=== PATIENT | female | born 1995 | race Caucasian/White ===

== ENCOUNTER 2025-01-14 23:35 | Inpatient (IN) | payer BC, OTHER ==
[~2025-01-14] VITALS: Ht 154.9 cm; Wt 66.7 kg
[2025-01-15 00:34] LABS: APPEARANCE,URINE CLEAR (CLEAR); BILIRUBIN,URINE 1+ (NEGATIVE); BLOOD, URINE 3+ Ery/uL (NEGATIVE); COLOR,URINE YELLOW (YELLOW); KETONES,URINE 3+ mg/dL (NEGATIVE); LEUKOCYTE ESTERASE ,URINE NEGATIVE (NEGATIVE); NITRITE, URINE NEGATIVE (NEGATIVE); PROTEIN,URINE 1+ mg/dl (NEGATIVE); UGLUCOSE NEGATIVE (NEGATIVE); UROBILINOGEN,URINE 0.2 EU/dL (0.2)
[2025-01-15 00:36] LABS: PREGNANCY TEST URINE QUAL NEGATIVE (NEGATIVE)
[2025-01-15 00:37] LABS: BASOPHILS % (AUTO) 0.5 % (0.0-2.0); HEMATOCRIT 46 % (33-45); HEMOGLOBIN 16.3 g/dL (11.5-14.8); LYMPHOCYTES % (AUTO) 10.9 % (20.0-44.0); MEAN CORPUSCULAR HEMOGLOBIN 31 PG (26.0-33.0); MEAN CORPUSCULAR HGB CONC 36 g/dl (31.0-36.0); MEAN CORPUSCULAR VOLUME 87 fL (82-100); MONOCYTES # (AUTO) 0.2 K/uL (0.1-1.30); MONOCYTES % (AUTO) 2.3 % (2.0-12.0); NEUTROPHILS # (AUTO) 7.8 K/uL (1.8-8.9); NEUTROPHILS % (AUTO) 86.3 % (43.0-81.0); PLATELET COUNT (AUTO) 396 K/uL (150-450); RED CELL DISTRIBUTION WIDTH 12.6 % (11.5-15.0)
[2025-01-15 00:48] LABS: CALCIUM, SERUM 9.6 mg/dL (8.5-10.1); POTASSIUM 3.8 mmol/L (3.5-5.1)
[2025-01-15 00:49] LABS: ADD URINE CULTURE YES; BACTERIA,URINE 2+ /HPF (None Seen); MUCUS,URINE Moderate /LPF (None Seen); RBC,URINE 21-50 /HPF (0-2)
[2025-01-15 00:54] LABS: ALBUMIN 5.2 g/dL (3.4-5.0); BILIRUBIN,TOTAL 2.3 mg/dL (0.2-1.0); TOTAL PROTEIN, SERUM 9.3 g/dL (6.4-8.2)
[2025-01-15] MEDS ORDERED: ONDANSETRON HCL/PF 4 MG/2 ML VIAL ONE ×3 (01:02→09:42)
[2025-01-15] MEDS ORDERED: MORPHINE SULFATE INJ 2 MG/ML DISP.SYRIN ONE ×3 (01:02→07:16)
[2025-01-15] MEDS ORDERED: PANTOPRAZOLE 40 MG VIAL ONE (01:02)
[2025-01-15] MEDS: IV NS 0.9% 1,000 ML IV ONE (01:08)
[2025-01-15] MEDS: PANTOPRAZOLE 40 MG VIAL IV ONE (01:09)
[2025-01-15] MEDS: ONDANSETRON HCL/PF - ER 4 MG/2 ML VIAL IV ONE ×2 (01:09→03:17)
[2025-01-15] MEDS: MORPHINE SULFATE INJ 2 MG/ML DISP.SYRIN IV ONE ×3 (01:09→07:21)
[2025-01-15 01:20] LABS: AMPHETAMINE, URINE NEGATIVE (NEGATIVE); BARBITURATE, URINE NEGATIVE (NEGATIVE); BENZODIAZEPINE, URINE NEGATIVE (NEGATIVE); COCCAINE, URINE NEGATIVE (NEGATIVE); OPIATE, URINE NEGATIVE (NEGATIVE); PHENCYCLIDINE SCREEN,URINE NEGATIVE (NEGATIVE)
[2025-01-15 01:33] LABS: CANNABINOID, URINE POSITIVE (NEGATIVE)
[2025-01-15] MEDS ORDERED: PIPERACI/TAZO 3.375GM/D5W 50ML PB IV ONE (03:34)
[2025-01-15] MEDS: PIPERACILLIN /TAZOBACTAM 3.375 G in IV D5W 50 ML IV ONE (03:39)
[2025-01-15] MEDS ORDERED: DIATR MEGLU/DIATRIZOATE SODIUM 120 ML BOTTLE (GASTROGRAPHIN) ONE (03:48)
[2025-01-15] MEDS ORDERED: METOCLOPRAMIDE HCL 10 MG/2 ML VIAL ONE (04:25)
[2025-01-15] MEDS: METOCLOPRAMIDE HCL 10 MG/2 ML VIAL IV ONE (04:30)
[2025-01-15 06:45] LABS: CALCIUM, SERUM 9.4 mg/dL (8.5-10.1); CREATININE 0.8 mg/dL (0.6-1.3); POTASSIUM 4.3 mmol/L (3.5-5.1)
[2025-01-15 07:17] LABS: ABG BASE EXCESS -14.4 mmol/L (-2.0-3.0); ABG OXYGEN SATURATION 97.6 % (94.0-98.0); ABG PCO2 20.3 mmHg (32.0-45.0); ABG PH 7.292 (7.350-7.450); ABG PO2 102.7 mmHg (83.0-108.0); ABG TOTAL HEMOGLOBIN 15.6 G/dL (12.0-16.0); COHb 0.3 % (0.5-1.5); MetHb 0.5 % (0.0-1.5); O2Hb 96.8 % (94.0-97.0); SITE, ABG LEFT BRACHIAL
[2025-01-15] MEDS: IV NS 0.9% 1,000 ML BAG IV ONE (09:38)
[2025-01-15] MEDS ORDERED: HYDROMORPHONE 1 MG/1 ML DISP.SYRIN ONE (09:42)
[2025-01-15] MEDS: ONDANSETRON HCL/PF 4 MG/2 ML VIAL IV ONE (09:49)
[2025-01-15] MEDS: HYDROMORPHONE 1 MG/1 ML DISP.SYRIN IV ONE (09:53)
[2025-01-15] MEDS ORDERED: ACETAMINOPHEN 325 MG TABLET PO PRN (10:00)
[2025-01-15] MEDS ORDERED: ZOLPIDEM TARTRATE 5 MG TABLET PO PRN (10:00)
[2025-01-15] MEDS ORDERED: Z GUARD REMEDY 4 OZ OINT TP PRN (10:00)
[2025-01-15] MEDS ORDERED: MAGNESIUM HYDROXIDE 30 ML UDC PO PRN (10:00)
[2025-01-15] MEDS ORDERED: ZEPBOUND SQ (10:48)
[2025-01-15] MEDS ORDERED: ONDA4TAB11 PO (10:48)
[2025-01-15] MEDS ORDERED: ALBU18HF2 IH (10:48)
[2025-01-15] MEDS ORDERED: NAPR-1009 PO (10:48)
[2025-01-15] MEDS: IV D5/0.45 NACL 1,000 ML IV PRN (12:49)
[2025-01-15] MEDS: D5 IV ONE (13:41)
[2025-01-15] MEDS: NACL IV ONE (13:41)
[2025-01-15] MEDS: SODIUM BICARBONATE IV ONE (13:41)
[2025-01-15] MEDS: ONDANSETRON HCL/PF 4 MG/2 ML VIAL IVP PRN (14:16)
[2025-01-15] MEDS: HYDROMORPHONE 1 MG/1 ML DISP.SYRIN IV PRN (14:29)
[2025-01-15 16:00] VITALS: BP 120/82; TEMP 98.1; O2SAT 97
[2025-01-15] MEDS ORDERED: ALBUTEROL FS 2.5 MG/3 ML VIAL.NEB NEB PRN (18:00)
[2025-01-15 20:00] VITALS: BP 115/77; TEMP 98.2; TEMP 98.3; O2SAT 95; O2SAT 98
[2025-01-16 06:55] LABS: BASOPHILS % (AUTO) 0.6 % (0.0-2.0); CALCIUM, SERUM 8.1 mg/dL (8.5-10.1); CREATININE 0.7 mg/dL (0.6-1.3); EOSINOPHILS # (AUTO) 0.1 K/uL (0.0-0.7); EOSINOPHILS % (AUTO) 1.8 % (0.0-6.0); HEMATOCRIT 32 % (33-45); HEMOGLOBIN 11.7 g/dL (11.5-14.8); LYMPHOCYTES # (AUTO) 1.9 K/uL (0.8-4.8); LYMPHOCYTES % (AUTO) 27.4 % (20.0-44.0); MAGNESIUM 1.9 mg/dL (1.8-2.4); MEAN CORPUSCULAR HEMOGLOBIN 31 PG (26.0-33.0); MEAN CORPUSCULAR HGB CONC 37 g/dl (31.0-36.0); MEAN CORPUSCULAR VOLUME 85 fL (82-100); MONOCYTES # (AUTO) 0.6 K/uL (0.1-1.30); MONOCYTES % (AUTO) 9.2 % (2.0-12.0); NEUTROPHILS # (AUTO) 4.2 K/uL (1.8-8.9); PHOSPHORUS 1.7 mg/dL (2.5-4.9); PLATELET COUNT (AUTO) 217 K/uL (150-450); RED BLOOD CELL COUNT(AUTO) 3.74 MIL/uL (4.0-5.2); RED CELL DISTRIBUTION WIDTH 12.9 % (11.5-15.0); WHITE BLOOD COUNT (AUTO) 6.9 K/uL (4.3-11.0)
[2025-01-16 07:09] LABS: THYROID STIMULATING HORMONE 2.19 uIU/mL (0.358-3.74)
[2025-01-16 08:26] VITALS: BP 128/87; TEMP 98.4; O2SAT 100
[2025-01-16] MEDS: PANTOPRAZOLE 40 MG VIAL IV SCH (08:29)
[2025-01-16] MEDS: POTASSIUM CL. PREMIX PERIPHER. 50 ML IV SCH (08:53)
[2025-01-16] MEDS ORDERED: MAG HYDROX/AL HYDROX/SIMETH 30 ML UDC PO PRN (14:30)
[2025-01-16] MEDS: MAG HYDROX/AL HYDROX/SIMETH 30 ML UDC PO PRN (14:44)
[2025-01-16] MEDS: Sodium Phosphate 15 MMOL in IV NS 0.9% 245 ML IV SCH (16:09)
[2025-01-16 16:55] VITALS: BP 104/58; TEMP 98.8; O2SAT 100
[2025-01-16] MEDS: METOCLOPRAMIDE HCL 10 MG/2 ML VIAL IV SCH (17:32)
[2025-01-16 20:00] VITALS: BP 122/89; TEMP 98.6; O2SAT 99
[2025-01-17 07:33] LABS: CREATININE 0.6 mg/dL (0.6-1.3); MAGNESIUM 1.8 mg/dL (1.8-2.4); PHOSPHORUS 3.3 mg/dL (2.5-4.9)
[2025-01-17 07:46] LABS: BASOPHILS % (AUTO) 0.6 % (0.0-2.0); EOSINOPHILS # (AUTO) 0.2 K/uL (0.0-0.7); EOSINOPHILS % (AUTO) 3.5 % (0.0-6.0); HEMATOCRIT 32 % (33-45); HEMOGLOBIN 11.5 g/dL (11.5-14.8); LYMPHOCYTES # (AUTO) 1.5 K/uL (0.8-4.8); LYMPHOCYTES % (AUTO) 28.9 % (20.0-44.0); MEAN CORPUSCULAR HEMOGLOBIN 30 PG (26.0-33.0); MEAN CORPUSCULAR HGB CONC 36 g/dl (31.0-36.0); MEAN CORPUSCULAR VOLUME 85 fL (82-100); MONOCYTES # (AUTO) 0.4 K/uL (0.1-1.30); MONOCYTES % (AUTO) 8.2 % (2.0-12.0); NEUTROPHILS # (AUTO) 3.1 K/uL (1.8-8.9); NEUTROPHILS % (AUTO) 58.8 % (43.0-81.0); PLATELET COUNT (AUTO) 208 K/uL (150-450); RED BLOOD CELL COUNT(AUTO) 3.79 MIL/uL (4.0-5.2); RED CELL DISTRIBUTION WIDTH 12.8 % (11.5-15.0); WHITE BLOOD COUNT (AUTO) 5.3 K/uL (4.3-11.0)
[2025-01-17 08:00] VITALS: BP 106/79; TEMP 98.2; O2SAT 98
[2025-01-17] MEDS: POTASSIUM CL. PREMIX PERIPHER. 50 ML IV SCH (09:52)
[2025-01-17 10:10] LABS: POTASSIUM 2.5 mmol/L (3.5-5.1)
[2025-01-17 16:00] VITALS: BP 114/80; TEMP 98.4; O2SAT 97
[2025-01-17 20:00] VITALS: BP 121/87; TEMP 99; O2SAT 97
[2025-01-18 07:43] LABS: CALCIUM, SERUM 9.2 mg/dL (8.5-10.1); CREATININE 0.6 mg/dL (0.6-1.3)
[2025-01-18 08:00] VITALS: BP 113/72; TEMP 98.1; O2SAT 98
[2025-01-18 08:26] LABS: BASOPHILS % (AUTO) 0.5 % (0.0-2.0); EOSINOPHILS # (AUTO) 0.2 K/uL (0.0-0.7); EOSINOPHILS % (AUTO) 3.5 % (0.0-6.0); HEMATOCRIT 36 % (33-45); HEMOGLOBIN 13.1 g/dL (11.5-14.8); LYMPHOCYTES # (AUTO) 2.1 K/uL (0.8-4.8); LYMPHOCYTES % (AUTO) 37.5 % (20.0-44.0); MEAN CORPUSCULAR HEMOGLOBIN 30 PG (26.0-33.0); MEAN CORPUSCULAR HGB CONC 36 g/dl (31.0-36.0); MEAN CORPUSCULAR VOLUME 84 fL (82-100); MONOCYTES # (AUTO) 0.5 K/uL (0.1-1.30); MONOCYTES % (AUTO) 8.7 % (2.0-12.0); NEUTROPHILS # (AUTO) 2.8 K/uL (1.8-8.9); NEUTROPHILS % (AUTO) 49.8 % (43.0-81.0); PLATELET COUNT (AUTO) 256 K/uL (150-450); RED BLOOD CELL COUNT(AUTO) 4.35 MIL/uL (4.0-5.2); RED CELL DISTRIBUTION WIDTH 12.5 % (11.5-15.0); WHITE BLOOD COUNT (AUTO) 5.7 K/uL (4.3-11.0)
[2025-01-18] MEDS: POTASSIUM CHLORIDE 20 MEQ TAB.PRT.SR PO SCH (09:55)
[2025-01-18] MEDS ORDERED: METO-295 PO (11:57)
[2025-01-18] MEDS ORDERED: FAMO-131 PO (11:57)
[2025-01-18] MEDS: POTASSIUM CHLORIDE 20 MEQ TAB.PRT.SR PO ONE (13:28)
== END 2025-01-18 15:00 | disposition home or self-care (01) | DRG 199 ==
LOC: ER 23:49 → TELE 01-15 11:38 → MED 01-15 12:23
PROVIDERS: ADMIT Student in an Organized Health Care Education/Training Program; ATTEND Nurse Practitioner Acute Care
DX: J98.2 Interstitial emphysema (principal); K22.3 Perforation of esophagus; E87.20 Acidosis, unspecified; R11.10 Vomiting, unspecified; E87.6 Hypokalemia; F12.19 Cannabis abuse with unspecified cannabis-induced disorder; F12.11 Cannabis abuse, in remission; K76.0 Fatty (change of) liver, not elsewhere classified; D64.9 Anemia, unspecified; K21.00 Gastro-esophageal reflux disease with esophagitis, without bleeding
CPT/HCPCS: 36415; 36600; 71045-TC; 71260-TC; 76705-TC; 80048-TC; 80053-TC; 81001; 82803-TC; 83605-TC; 83690-TC; 83735-TC; 84100-TC; 84443-TC; 84484-TC; 84703-TC; 85025-TC; 87040-TC; 87086-TC; A4223; A9563; G0378; G0480; J1171; J2270; J2405; J2470; J2543; J2765; J3480; J3490; J7030; J7040; J7042; J7050; J7060; Q9963